=== PATIENT | female | born 1980 | race Caucasian/White ===

== ENCOUNTER 2022-03-09 07:23 | Emergency (ER) | payer OTHER, BC, SELFPAY ==
[2022-03-09] VITALS (10 sets, daily range): BP systolic 107–132; BP diastolic 66–77; PULSE 67; RESP 20; TEMP 36.8; O2SAT 91–98
--- NOTE | ~2022-03-09 | XR_ITS ---
EXAMINATION: XR knee LT min 4V DATE: 03/09/2022 07:45 INDICATION: Anterosuperior and medial knee contusions post fall TECHNIQUE: Anteroposterior, 2 oblique and crosstable lateral views of the left knee were obtained COMPARISON: None. FINDINGS: Left knee alignment is normal. No fracture. Joint spaces appear normal on nonweightbearing imaging w ith no osteophytosis. No joint effusion/layering lipohemarthrosis. Prepatellar soft tissue swelling. IMPRESSION: 1. No left knee joint effusion or osseous abnormality Reviewed, dictated and finalized at location A.
--- NOTE | 2022-03-09 07:32 | ED.FALL ---
HPI - Fall General Chief Complaint: Fall Stated Complaint: left knee injury Time Seen by Provider: 03/09/22 07:25 Source: patient, EMS and RN notes reviewed Mode of arrival: EMS Limitations: no limitations History of Present Illness HPI Narrative: 41-year-old female presenting to the emergency department for evaluation of an injury to her left knee. Patient states she was at work and was walking through the parking lot when she tripped over a speed bump. Patient states she did fall forward landing on her left knee. Patient denies striking head denies loss of consciousness. Patient denies any other pain or injury other than her left knee. Patient states she was able to get up and walk immediately after the incident but over the course of the morning she did have worsening left knee pain. Patient did present to the facility nurse and was evaluated. Patient states when she was evaluated she had more intense pain with range of motion and with weightbearing. Patient arrived to the emergency department by EMS. Patient does have some ecchymosis over the left knee. Patient states that she suspects it is the road rash that is hurting the most. Related Data Home Medications Medication Instructions Recorded Confirmed Abilify 03/09/22 Atarax 03/09/22 03/09/22 Lexapro 03/09/22 Allergies Allergy/AdvReac Type Severity Reaction Status Date / Time cyanocobalamin (vitamin B12) Allergy Hives Verified 03/09/22 07:39 Review of Systems Review of Systems: CONSTITUTIONAL: Denies fever, chills, or sweats. EYES: Denies visual changes, redness, or discharge. ENT: Denies rhinorrhea, congestion, sore throat, or otalgia. CARDIOVASCULAR: Denies chest pain, palpitations, or edema. RESPIRATORY: Denies cough or dyspnea. GASTROINTESTINAL: Denies abdominal pain, nausea, vomiting, or diarrhea. GENITOURINARY: Denies dysuria or hematuria. SKIN: Denies rash or itching. MUSCULOSKELETAL: Left knee pain worsened with patient was able to get up and ambulate in ED with no dizziness. NEUROLOGIC: Denies headache, numbness, or weakness. All systems reviewed & are unremarkable except as noted in HPI and below Exam Narrative: APPEARANCE: Well appearing, no pain, no distress, well-nourished. HEAD: normocephalic, atraumatic. NECK: Supple. No adenopathy, no masses. RESPIRATORY: Airway patent, respirations nonlabored. Clear to auscultation bilaterally, no rales, rhonchi, wheezing. CARDIOVASCULAR: Regular rate and rhythm without murmurs rubs or gallops. MUSCULOSKELETAL: Mild abrasion overlying the patella. Ecchymosis and swelling over anterior aspect of knee. No lower extremity tenderness to palpation. No tib-fib or ankle tenderness to palpation. No distal femoral tenderness to palpation. NEURO: Alert. Cranial nerves II through XII intact. Grossly intact SKIN: Mild abrasion overlying the patella. Course Vital Signs Vital signs: Vital Signs Temperature 98.2 F 03/09/22 07:16 Pulse Rate 67 03/09/22 07:16 Respiratory Rate 20 03/09/22 07:16 Blood Pressure 132/75 03/09/22 07:16 Pulse Oximetry 98 03/09/22 07:16 Oxygen Delivery Room Air 03/09/22 07:16 Temperature 98.2 F 03/09/22 07:16 Pulse Rate 67 03/09/22 07:16 Respiratory Rate 20 03/09/22 07:16 Blood Pressure 117/66 03/09/22 08:17 Pulse Oximetry 96 03/09/22 08:17 Oxygen Delivery Room Air 03/09/22 07:16 MDM - Fall Imaging Data My impression: No acute fracture or dislocation of the left knee. Discharge Plan Discharge Clinical Impression: Contusion of knee, left Patient Disposition: Home, Self-Care Condition: Stable Instructions: Antibiotic Form, Crutch Instructions (ED), Knee Pain (ED), Knee Immobilizer (ED) Additional Instructions: Knee immobilizer and crutches for limited weightbearing as directed for comfort. Have close follow-up with your primary care physician. If you have any worsening symptoms and please call or return to the emergency de
--- NOTE | 2022-03-09 07:41 | PC.NURSE ---
Patient off unit to radiology for knee xray.
== END 2022-03-09 08:39 | disposition home or self-care (01) ==
PROVIDERS: Emergency Provider Emergency Medicine
DX: S80.02XA Contusion of left knee, initial encounter (principal); W18.09XA Striking against other object with subsequent fall, initial encounter
CPT/HCPCS: 73564; 99283

== ENCOUNTER 2022-11-11 16:42 | Emergency (ER) | payer BC, SELFPAY ==
[2022-11-11 17:00] VITALS: BP 114/73; PULSE 90; RESP 14; TEMP 36.3; O2SAT 96
--- NOTE | 2022-11-11 17:25 | ED.GENADULT ---
HPI - General Adult General Chief complaint: Wound/Laceration Stated complaint: cut L left History of Present Illness HPI narrative: The patient is a 37-year-old with no significant past medical history. 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 There is decreased sensation of the left thumb dorsal aspect with an area of numbness distally at the distal phalanx. Immunizations for tetanus are up-to-date. No other injuries. Related Data Home Medications Medication Instructions Recorded Confirmed Lexapro 20 mg PO DAILY 03/09/22 11/11/22 Allergies Allergy/AdvReac Type Severity Reaction Status Date / Time cyanocobalamin (vitamin B12) Allergy Hives Verified 11/11/22 17:09 Review of Systems Review of Systems: All systems reviewed & are unremarkable except as noted in HPI and below Constitutional: Constitutional: Reports no additional constitutional complaints, Denies anorexia, Denies body ache(s), Denies chills, Denies excessive sweating, Denies fatigue, Denies fever(s), Denies frequent falls, Denies headache(s), Denies malaise and Denies poor appetite Eyes: Eyes: Reports no additional eye complaints, Denies blurry vision, Denies change in vision, Denies irritation, Denies itchy eyes and Denies photophobia ENT: Reports system reviewed and no additional complaints, except as documented, Reports Normal hearing present, Denies change in voice, Denies dysphagia, Denies vertigo, Denies dizziness, Denies ear discharge, Denies headache(s), Denies hearing loss, Denies hoarseness, Denies nasal congestion, Denies neck pain, Denies sinus pressure, Denies sore throat and Denies throat swelling Cardiovascular: Cardiovascular: Reports no additional cardiovascular complaints, Denies chest pain, Denies syncope, Denies rapid heart rate, Denies irregular heart rhythm, Denies leg edema, Denies dyspnea and Denies slow heart rate Respiratory: Respiratory: Reports no additional respiratory complaints, Denies cough, Denies dyspnea, Denies stridor and Denies wheezing Gastrointestinal: Gastrointestinal: Reports no additional gastrointestinal complaints, Denies abdominal pain, Denies melena, Denies hematochezia, Denies dysphagia, Denies diarrhea, Denies nausea and Denies vomiting Genitourinary: Genitourinary: Denies hematuria, Denies urinary frequency, Denies dysuria, Denies flank pain and Denies urinary urgency Musculoskeletal: Musculoskeletal: Reports no additional musculoskeletal complaints, Denies abnormal gait, Denies back pain, Denies myalgias, Denies arthralgias, Denies joint swelling, Denies limited range of motion, Denies muscle cramps, Denies muscle weakness, Denies neck pain and Denies numbness Integumentary/Breasts: Skin/Breast: Reports system reviewed and no additional complaints, except as docu, Denies breast pain, Denies change in pigmentation, Denies pruritus, Denies erythema and Reports wounds ( Dorsal aspect of the left thumb) Neurologic: Reports system reviewed and no additional complaints, except as documented, Reports Normal hearing present, Denies Abnormal speech present, Denies abnormal gait, Denies confusion, Denies vertigo, Denies dizziness, Denies syncope, Denies frequent falls, Denies headache(s), Denies focal weakness, Reports numbness ( dorsal aspect of left thumb) and Denies paresthesias Psychiatric: Psychiatric: Reports no additional psychiatric complaints and Denies confusion Endocrine: Endocrine: Reports no additional endocrine complaints, Denies cold intolerance, Denies excessive sweating, Denies fatigue and Denies heat intolerance Hematologic/Lymphatic: Hematologic/Lymphatic: Reports no additional hematologic/lymphatic complaints, Denies easy bleeding and Denies easy bruising Allergic/Immunologic: Allergic/Immunologic: Reports no additional allergic/immunologic complaints, Denies urticaria, Denies itchy eyes, Denies throat sw
[2022-11-11] MEDS: ACETAMINOPHEN 500 MG TABLET 1000 MG PO (17:34)
[2022-11-11] MEDS: IBUPROFEN 400 MG TABLET 800 MG PO (17:34)
[2022-11-11] MEDS: LIDOCAINE HCL 1% LOCAL INJ 10 ML VIAL 20 ML INFILTRATE (17:34)
[2022-11-11] MEDS: CEPHALEXIN 500 MG CAPSULE PO (17:35)
--- NOTE | 2022-11-11 18:28 | PC.NURSE ---
In room with Dr Butts to assist with sutures. Cleaned and wrapped with antibiotic ointment per Dr bhatia
[2022-11-11 18:40] VITALS: BP 109/72; PULSE 73; RESP 14; TEMP 36.3; O2SAT 98
== END 2022-11-11 18:40 | disposition home or self-care (01) ==
PROVIDERS: Emergency Provider Emergency Medicine
DX: S61.012A Laceration without foreign body of left thumb without damage to nail, initial encounter (principal); W27.8XXA Contact with other nonpowered hand tool, initial encounter
CPT/HCPCS: 12001; 99283; A9270